=== PATIENT | male | born 1995 | race Caucasian/White ===

== ENCOUNTER 2021-06-04 22:23 | Emergency (ER) | payer OTHER ==
[~2021-06-04] VITALS: Ht 180.3 cm; Wt 97.5 kg
[2021-06-04] MEDS ORDERED: ADDERALL 30 MG30 MG PO (22:30)
[2021-06-04] MEDS ORDERED: HYDROCODON-ACE1 EAC7 PO (23:06)
[2021-06-04] MEDS ORDERED: MEDROLDOSEPACK PO (23:06)
[2021-06-04] MEDS ORDERED: ZANAFLEX4 MG PO (23:06)
[2021-06-05 01:13] VITALS: BP 124/68
== END 2021-06-05 01:15 | disposition home or self-care (01) ==
LOC: ER 22:23
DX: M62.830 Muscle spasm of back (principal); Z79.899 Other long term (current) drug therapy